=== PATIENT | male | born 1950 | race Caucasian/White ===

== ENCOUNTER → 2018-09-20 | Day surgery (SDC) | payer MEDICARE ==
[2018-09-16 12:39] LABS: BASOPHILS % 0.3 % (0.0-1.0); EOSINOPHILS # (AUTO) 0.2 (0.0-0.4); EOSINOPHILS % 1.6 % (0.0-6.0); HEMATOCRIT 36.3 % (38.2-49.6); HEMOGLOBIN 12.9 g/dL (14.0-18.0); LYMPHOCYTES # (AUTO) 1.4 (1.0-3.2); LYMPHOCYTES % 14.8 % (18.0-39.1); MEAN CORPUSCULAR HEMOGLOBIN 31.3 pg (28-32); MEAN CORPUSCULAR HGB CONC 35.5 g/dL (31-35); MEAN CORPUSCULAR VOLUME 88.1 fL (81-99); MONOCYTES # (AUTO) 0.8 (0.2-0.8); MONOCYTES % 8.3 % (4.4-11.3); NEUTROPHILS # (AUTO) 7.2 (2.1-6.9); NEUTROPHILS % 74.3 % (38.7-80.0); PLATELET COUNT 244 x10e3/uL (140-360); RED BLOOD COUNT 4.12 x10e6/uL (4.3-5.7); RED CELL DISTRIBUTION WIDTH 12.4 % (11.7-14.4)
[~2018-09-20] MED LIST: ASPIR 8181 MG PO; FENTANYL CITRATE/PF 100MCG/2 ML INJ ONE; HYOSCYAMINE SULFATE 0.5 MG/ML INJ ONE; LIPITOR20 MG PO; METFORMIN HCL500 MG PO; METOPROLOL SUCC25 MG PO; MIDAZOLAM HCL 2 MG/2 ML VIAL ONE; PROPOFOL IV EMULSION 10 MG/ML 50 ML VIAL ONE
--- OUTSIDE RECORDS SUMMARY | 2018-09-20 08:45 | XMS REPORT | Clinical Summary ---
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 10/13/2018 Active blood-glucose meter Use as 1 each 0 (ONETOUCH ULTRA2) kit instructed 8 Active blood sugar diagnostic Four times 150 strip 0 strips (ONETOUCH ULTRA daily 8 TEST) strip test strips 10/13/2017 Discontinued atorvastatin (LIPITOR) 20 0 MG tablet 8 10/13/2017 Discontinued clopidogrel (PLAVIX) 75 0 mg tablet 8 10/13/2017 Discontinued clonAZEPAM (KlonoPIN) 0.5 0 MG tablet 8 10/13/2017 Discontinued citalopram (CeleXA) 20 MG 0 tablet 8 10/13/2017 Discontinued azithromycin (ZITHROMAX) 0 250 MG tablet 8 10/13/2017 Discontinued metoprolol tartrate 0 (LOPRESSOR) 25 mg tablet 8 10/13/2017 Discontinued metFORMIN (GLUCOPHAGE) 0 1,000 mg tablet 8 10/13/2017 Discontinued lisinopril 0 (PRINIVIL,ZESTRIL) 20 mg 8 tablet 10/13/2017 Discontinued hydrocodone-chlorpheniram TAKE 5ML BY 0 ine (TUSSIONEX MOUTH TWICE 7 PENNKINETIC) 10-8 mg/5 mL DAILY ER suspension NEEDED 10/13/2017 Discontinued pantoprazole (PROTONIX) 0 40 MG EC tablet 8 10/13/2017 Discontinued nitroglycerin (NITROSTAT) Place 0.4 mg 0 0.4 MG SL tablet under the tongue every 5 (five) minutes as needed for chest pain. 10/13/2017 Discontinued polyethylene glycol Take 17 g by 0 (MIRALAX) 17 gram packet mouth nightly. 10/13/2017 Discontinued insulin GLARGINE (LANTUS) Inject 30 9 mL 0 100 unit/mL injection Units under 8 (vial) the skin daily before breakfast for 30 days. 11/12/2017 furosemide (LASIX) 20 mg Take 1 tablet 60 tablet 0 tablet (20 mg total) 8 by mouth 2 (two) times a day for 30 days. 11/13/2017 prasugrel (EFFIENT) 10 mg Take 1 tablet 30 tablet 0 tablet (10 mg total) 8 by mouth daily for 30 days. 11/12/2017 atorvastatin (LIPITOR) 80 Take 1 tablet 30 tablet 0 MG tablet (80 mg total) 8 by mouth nightly for 30 days. 11/12/2017 metoprolol tartrate Take 1 tablet 60 tablet 0 (LOPRESSOR) 25 mg tablet (25 mg total) 8 by mouth 2 (two) times a day for 30 days. 11/12/2017 metFORMIN (GLUCOPHAGE) Take 1 tablet 60 tablet 0 1,000 mg tablet (1,000 mg 8 total) by mouth 2 (two) times a day with meals for 30 days. 11/12/2017 ferrous sulfate 325 (65 Take 1 tablet 60 tablet 0 FE) MG tablet (325 mg 8 total) by mouth 2 (two) times a day with meals for 30 days. 11/03/2017 HYDROcodone-acetaminophen Take 1 tablet 30 tablet 0 (NORCO) 10-325 mg per by mouth 8 tablet every 4 (four) hours as needed for moderate pain for up to 30 doses. Max Daily Amount: 30 tablets 11/12/2017 potassium chloride Take 2 120 capsule 0 (MICRO-K) 10 MEQ CR capsules (20 8 capsule mEq total) by mouth 2 (two) times a day for 30 days. 11/13/2017 pantoprazole (PROTONIX) Take 1 tablet 30 tablet 0 40 MG EC tablet (40 mg total) 8 by mouth daily for 30 days. 11/13/2017 citalopram (CeleXA) 20 MG Take 1 tablet 30 tablet 0 tablet (20 mg total) 8 by mouth daily for 30 days. 10/13/2017 Discontinued insulin NPH (HumuLIN N Inject 15 10 mL 3 NPH U-100 Insulin) 100 Units under 8 unit/mL injection the skin 2 (two) times a day before meals for 30 days. 10/26/2017 Discontinued lancets (ONETOUCH DELICA Test four 200 each 0 LANCETS) 33 gauge misc times daily 8 10/26/2017 Discontinued insulin syringe-needle Use as 100 each 0 U-100 (INSULIN SYRINGE) directed 8 1/2 mL 28 gauge x 1/2" syringe Active Problems Problem Noted Date NSTEMI (non-ST elevated myocardial infarction) 10/05/2017 Chest pain 10/04/2017 Postsurgical aortocoronary bypass status Encounters Care Team Description Date Type Specialty Zen Herrera Jr., MD 12/09/2017 Hospital Cardiac Rehabilitation Encounter Zen Herrera Jr., MD 12/08/2017 Hospital Cardiac Rehabilitation Encounter Zen Herrera Jr., MD 12/06/2017 Hospital Cardiac Rehabilitation Encounter Zen Herrera Jr., MD 12/02/2017 Hospital Cardiac Rehabilitation Encounter Zen Herrera Jr., MD 12/01/2017 Hospital Cardiac Rehabilitation Encounter Zen Herrera Jr., MD 11/29/2017 Hospital Cardiac Rehabilitation Encounter Zen Herrera Jr., MD 11/25/2017 Hospital Cardiac Rehabilitation Encounter Zen Herrera Jr., MD 11/24/2017 Hospital Cardiac Rehabilitation Encounter Zen Herrera Jr., MD 11/22/2017 Hospital Cardiac Rehabilitation Encounter Zen Herrera Jr., MD 11/18/2017 Hospital Cardiac Rehabilitation Encounter Zen Herrera Jr., MD 11/17/2017 Hospital Cardiac Rehabilitation Encounter Zen Herrera Jr., MD 11/10/2017 Hospital Cardiac Rehabilitation Encounter Zen Herrera Jr., MD Luczak, Amy Kathryn, PA-C Postsurgical aortocoronary bypass status (Primary Dx) 10/26/2017 Office Visit Cardiovascular [facility] Postsurgical aortocoronary bypass status (Primary Dx) 10/18/2017 Transcribe Cardiac Rehabilitation Orders Zen Herrera Jr., MD CABG x2 off pump, using autologous vein graft & KLEIN 10/08/2017 Surgery General Surgery Misael Dinh MD 10/08/2017 Anesthesia Surgical Intensive Care Event Chaim Tucker MD Cv left heart cath w lv gram cors [53860 (CPT)] 10/05/2017 Surgery Procedural Cardiology Shyann Milian DO Berberian, Esteban N., MD Chest pain, unspecified type (Primary Dx); Shortness of breath; NSTEMI (non-ST elevated myocardial infarction); Unstable angina pectoris 10/04/2017 Hospital Critical Care Medicine - Encounter 10/13/2017 after 09/19/2017 Family History Medical History Relation Name Comments Heart disease Mother MA Relation Name Status Comments Mother Social History Date Tobacco Use Types Packs/Day Years Used Never Smoker Smokeless Tobacco: Never Used Alcohol Use Drinks/Week oz/Week Comments No Sex Assigned at Date Recorded Not on file Industry Job Start Date Occupation Not on file Not on file Not on file Travel End Travel History Travel Start No recent travel history available. Last Filed Vital Signs Time Taken Vital Sign Reading 10/26/2017 4:33 PM CDT Blood Pressure 114/64 10/26/2017 4:33 PM CDT Pulse 72 10/13/2017 8:00 AM ENGINEER Temperature 36.6 C (97.8 F) 10/26/2017 4:33 PM CDT Respiratory Rate 12 10/26/2017 4:33 PM CDT Oxygen Saturation 98% - Inhaled Oxygen - Concentration 10/26/2017 4:33 PM CDT Weight 84.3 kg (185 lb 12.8 oz) 10/26/2017 4:33 PM CDT Height 167.6 cm (5' 6") 10/26/2017 4:33 PM CDT Body Mass Index 29.99 Plan of Treatment Health Maintenance Due Date Last Done Comments COLON CANCER SCREENING 2000 SHINGLES VACCINES (1 of 2000 2) PNEUMOCOCCAL 2015 POLYSACCHARIDE VACCINE AGE 65 AND OVER PNEUMOCOCCAL-13 2015 INFLUENZA VACCINE 03/09/2018 Implants Device Identifier Shelf Expiration Date Model / Serial / Lot Implanted Type Area Manufactur er 06/08/2019 [id number] / / [id number] Device Vasclr Clsr Baln Cath 10ml Cardiovasc N/A: N/A ACCESS Lkng Syr 5fr Landry Mynxgrip - ular CLOSURE [id number] Implants INC Implanted: 10/05/2017 (Quantity not on file) 10/16/2017 HSK [id number] / / [id number] System Prox Seal Aortc Cutter Cardiovasc N/A: Chest [employer] 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 4.3mm Heartstring Iii - ular [id number] Implants Implanted: Qty: 1 on 10/08/2017 [place] [id number] / / Clip Ligating Wide Titanium Small - Surgical N/A: Chest SYMMETRY [id number] Implants; SURGICAL Implanted: Qty: 1 on 10/08/2017 by Expanders; Zen Herrera Jr., MD Extenders; Surgical Wires [id number] / / Clip Ligating Wide Titanium Small - Surgical Left: Leg SYMMETRY [id number] Implants; SURGICAL Implanted: Qty: 1 on 10/08/2017 by Expanders; Zen Herrera Jr., MD Extenders; Surgical Wires [id number] / / Clip Ligating Titanium Medium - Surgical N/A: Chest VESOCCLUDE [id number] Implants; MEDICAL Implanted: Qty: 1 on 10/08/2017 by Expanders; Zen Herrera Jr., MD Extenders; Surgical Wires [id number] / / Clip Ligating Titanium Medium - Surgical Left: Leg VESOCCLUDE [id number] Implants; MEDICAL Implanted: Qty: 1 on 10/08/2017 by Expanders; Zen Herrera Jr., MD Extenders; Surgical Wires Device Identifier Shelf Expiration Date Model / Serial / Lot Explanted Type Area Manufactur er [place] 1999L / / Shunt Cor Axius Hrt Beating Surgical N/A: Chest [employer] Accessories Long [id number] - Implantabl [id number] e Shunts Implanted: or Shunt Explanted: 10/08/2017 by Evelyn Herrera Jr., MD (Quantity not on file) OF 1500L / / Shunt Cor Axius Beating Hrt Long Surgical N/A: Chest [employer] 1.5x20.25mm - [id number] Implantabl Implanted: e Shunts Explanted: 10/08/2017 by Sharon, or Shunt Zen Ruiz Jr., MD (Quantity not on Extenders file) 01/15/2018 OF 2500 / / [id number] Shunt Cor Axius 2.5x19mm - Surgical N/A: Chest [employer] [id number] Implantabl Implanted: e Shunts Explanted: 10/08/2017 (Quantity not or Shunt on file) Extenders Procedures Comments Procedure Name Priority Date/Time Associated Diagnosis POC GLUCOSE Routine 10/13/2017 11:26 AM ENGINEER IONIZED CALCIUM Routine 10/13/2017 8:46 AM ENGINEER POC GLUCOSE Routine 10/13/2017 7:10 AM ENGINEER ZZESTIMATED GFR Routine 10/13/2017 5:37 AM ENGINEER BASIC METABOLIC PANEL Routine 10/13/2017 5:37 AM ENGINEER MAGNESIUM LEVEL Routine 10/13/2017 5:37 AM ENGINEER PHOSPHORUS LEVEL Routine 10/13/2017 5:37 AM ENGINEER HC COMPLETE BLD COUNT Routine 10/13/2017 W/AUTO DIFF 5:37 AM ENGINEER POC GLUCOSE Routine 10/12/2017 8:21 PM ENGINEER POC GLUCOSE Routine 10/12/2017 4:13 PM ENGINEER POC GLUCOSE Routine 10/12/2017 11:34 AM ENGINEER POC GLUCOSE Routine 10/12/2017 7:04 AM ENGINEER XR CHEST 1 VW PORTABLE Routine 10/12/2017 5:16 AM ENGINEER MAGNESIUM LEVEL Routine 10/12/2017 4:42 AM ENGINEER PHOSPHORUS LEVEL Routine 10/12/2017 4:42 AM ENGINEER HC COMPLETE BLD COUNT Routine 10/12/2017 W/AUTO DIFF 4:42 AM ENGINEER POC GLUCOSE Routine 10/11/2017 8:29 PM ENGINEER POC GLUCOSE Routine 10/11/2017 4:06 PM ENGINEER POC GLUCOSE Routine 10/11/2017 11:07 AM ENGINEER POC GLUCOSE Routine 10/11/2017 7:07 AM ENGINEER ECG 12-LEAD Routine 10/11/2017 5:27 AM ENGINEER ZZESTIMATED GFR Routine 10/11/2017 5:15 AM ENGINEER PHOSPHORUS LEVEL Routine 10/11/2017 5:15 AM ENGINEER HC COMPLETE BLD COUNT Routine 10/11/2017 W/AUTO DIFF 5:15 AM ENGINEER IONIZED CALCIUM Routine 10/11/2017 5:15 AM ENGINEER MAGNESIUM LEVEL Routine 10/11/2017 5:15 AM ENGINEER BASIC METABOLIC PANEL Routine 10/11/2017 5:15 AM ENGINEER XR CHEST 1 VW PORTABLE Routine 10/11/2017 5:11 AM ENGINEER POC GLUCOSE Routine 10/10/2017 3:40 PM ENGINEER POC GLUCOSE Routine 10/10/2017 11:21 AM ENGINEER POC GLUCOSE Routine 10/10/2017 7:21 AM ENGINEER XR CHEST 1 VW PORTABLE Routine 10/10/2017 7:01 AM ENGINEER ECG 12-LEAD Routine 10/10/2017 5:10 AM ENGINEER ZZESTIMATED GFR Routine 10/10/2017 3:44 AM ENGINEER IONIZED CALCIUM Routine 10/10/2017 3:44 AM ENGINEER MAGNESIUM LEVEL Routine 10/10/2017 3:44 AM ENGINEER BASIC METABOLIC PANEL Routine 10/10/2017 3:44 AM ENGINEER CBC HEMOGRAM Routine 10/10/2017 3:44 AM ENGINEER POC GLUCOSE Routine 10/09/2017 9:37 PM ENGINEER ZZESTIMATED GFR Routine 10/09/2017 7:30 PM ENGINEER IONIZED CALCIUM Routine 10/09/2017 7:30 PM ENGINEER MAGNESIUM LEVEL Routine 10/09/2017 7:30 PM ENGINEER BASIC METABOLIC PANEL Routine 10/09/2017 7:30 PM ENGINEER POC GLUCOSE Routine 10/09/2017 4:32 PM ENGINEER POC GLUCOSE Routine 10/09/2017 10:49 AM ENGINEER POC GLUCOSE Routine 10/09/2017 9:07 AM ENGINEER XR CHEST 1 VW PORTABLE Routine 10/09/2017 7:32 AM ENGINEER POC GLUCOSE Routine 10/09/2017 7:09 AM ENGINEER POC GLUCOSE Routine 10/09/2017 6:06 AM ENGINEER ARTERIAL BLOOD GAS Routine 10/09/2017 4:37 AM ENGINEER ECG 12-LEAD Routine 10/09/2017 4:20 AM ENGINEER ZZESTIMATED GFR Routine 10/09/2017 4:20 AM ENGINEER IONIZED CALCIUM Routine 10/09/2017 4:20 AM ENGINEER MAGNESIUM LEVEL Routine 10/09/2017 4:20 AM ENGINEER BASIC METABOLIC PANEL Routine 10/09/2017 4:20 AM ENGINEER CBC HEMOGRAM Routine 10/09/2017 4:20 AM ENGINEER POC GLUCOSE Routine 10/09/2017 4:19 AM ENGINEER POC GLUCOSE Routine 10/09/2017 2:03 AM ENGINEER POC GLUCOSE Routine 10/09/2017 12:02 AM ENGINEER POC GLUCOSE Routine 10/08/2017 11:07 PM ENGINEER POC GLUCOSE Routine 10/08/2017 9:01 PM ENGINEER POC GLUCOSE Routine 10/08/2017 7:06 PM ENGINEER POC GLUCOSE Routine 10/08/2017 6:04 PM ENGINEER MAGNESIUM LEVEL Timed 10/08/2017 5:20 PM ENGINEER POC GLUCOSE Routine 10/08/2017 5:08 PM ENGINEER POC GLUCOSE Routine 10/08/2017 3:59 PM ENGINEER POC GLUCOSE Routine 10/08/2017 3:00 PM ENGINEER POC GLUCOSE Routine 10/08/2017 2:01 PM ENGINEER POC GLUCOSE Routine 10/08/2017 12:56 PM ENGINEER POC GLUCOSE Routine 10/08/2017 11:55 AM ENGINEER POC GLUCOSE Routine 10/08/2017 11:05 AM ENGINEER ARTERIAL BLOOD GAS STAT 10/08/2017 11:05 AM ENGINEER ECG 12-LEAD STAT 10/08/2017 10:49 AM ENGINEER ZZESTIMATED GFR STAT 10/08/2017 10:45 AM ENGINEER PROTHROMBIN TIME WITH INR STAT 10/08/2017 10:45 AM ENGINEER PARTIAL THROMBOPLASTIN STAT 10/08/2017 TIME (PTT) 10:45 AM ENGINEER MAGNESIUM LEVEL STAT 10/08/2017 10:45 AM ENGINEER IONIZED CALCIUM STAT 10/08/2017 10:45 AM ENGINEER CBC HEMOGRAM STAT 10/08/2017 10:45 AM ENGINEER BASIC METABOLIC PANEL STAT 10/08/2017 10:45 AM ENGINEER XR CHEST 1 VW PORTABLE STAT 10/08/2017 10:42 AM ENGINEER POC GLUCOSE Routine 10/08/2017 10:41 AM ENGINEER POC CG8, ARTERIAL Routine 10/08/2017 9:58 AM ENGINEER POC CG8, ARTERIAL Routine 10/08/2017 9:37 AM ENGINEER POC CG8, ARTERIAL Routine 10/08/2017 8:48 AM ENGINEER URINALYSIS, AUTOMATED Timed 10/08/2017 NSTEMI (non-ST elevated WITH MICROSCOPY 7:45 AM ENGINEER myocardial infarction) POC CG8, ARTERIAL Routine 10/08/2017 7:31 AM ENGINEER POC GLUCOSE Routine 10/08/2017 5:48 AM ENGINEER ZZESTIMATED GFR Routine 10/08/2017 4:42 AM ENGINEER TROPONIN Routine 10/08/2017 4:42 AM ENGINEER HC COMPLETE BLD COUNT Routine 10/08/2017 W/AUTO DIFF 4:42 AM ENGINEER BASIC METABOLIC PANEL Routine 10/08/2017 4:42 AM ENGINEER POC GLUCOSE Routine 10/08/2017 4:09 AM ENGINEER POC GLUCOSE Routine 10/08/2017 2:25 AM ENGINEER POC GLUCOSE Routine 10/08/2017 12:24 AM ENGINEER POC GLUCOSE Routine 10/07/2017 10:56 PM ENGINEER PARTIAL THROMBOPLASTIN Timed 10/07/2017 TIME (PTT) 10:56 PM ENGINEER POC GLUCOSE Routine 10/07/2017 8:26 PM ENGINEER POC GLUCOSE Routine 10/07/2017 6:38 PM ENGINEER POC GLUCOSE Routine 10/07/2017 4:40 PM ENGINEER PARTIAL THROMBOPLASTIN Timed 10/07/2017 TIME (PTT) 3:50 PM ENGINEER POC GLUCOSE Routine 10/07/2017 11:45 AM ENGINEER PARTIAL THROMBOPLASTIN Timed 10/07/2017 TIME (PTT) 8:20 AM ENGINEER POC GLUCOSE Routine 10/07/2017 6:40 AM ENGINEER ZZESTIMATED GFR Routine 10/07/2017 6:00 AM ENGINEER PLATELET MAPPING Routine 10/07/2017 6:00 AM ENGINEER PLATELET FUNCTION P2Y12 Routine 10/07/2017 6:00 AM ENGINEER TROPONIN Routine 10/07/2017 6:00 AM ENGINEER HC COMPLETE BLD COUNT Routine 10/07/2017 W/AUTO DIFF 6:00 AM ENGINEER BASIC METABOLIC PANEL Routine 10/07/2017 6:00 AM ENGINEER PARTIAL THROMBOPLASTIN Timed 10/06/2017 TIME (PTT) 10:58 PM ENGINEER POC GLUCOSE Routine 10/06/2017 8:43 PM ENGINEER PARTIAL THROMBOPLASTIN Timed 10/06/2017 TIME (PTT) 3:33 PM ENGINEER POC GLUCOSE Routine 10/06/2017 10:54 AM ENGINEER SPIROMETRY Routine 10/06/2017 Shortness of breath 9:24 AM ENGINEER PARTIAL THROMBOPLASTIN Timed 10/06/2017 TIME (PTT) 8:39 AM ENGINEER POC GLUCOSE Routine 10/06/2017 6:21 AM ENGINEER ZZESTIMATED GFR Routine 10/06/2017 4:54 AM ENGINEER TROPONIN Routine 10/06/2017 4:54 AM ENGINEER HC COMPLETE BLD COUNT Routine 10/06/2017 W/AUTO DIFF 4:54 AM ENGINEER BASIC METABOLIC PANEL Routine 10/06/2017 4:54 AM ENGINEER PARTIAL THROMBOPLASTIN Timed 10/05/2017 TIME (PTT) 11:43 PM ENGINEER POC GLUCOSE Routine 10/05/2017 8:25 PM ENGINEER US CAROTID DUPLEX STAT 10/05/2017 BILATERAL 7:11 PM ENGINEER POC GLUCOSE Routine 10/05/2017 4:10 PM ENGINEER ECHOCARDIOGRAM 2D Routine 10/05/2017 COMPLETE W MMODE SPECTRAL 3:16 PM ENGINEER COLOR DOPPLER (59952) PREPARE RBC Timed 10/05/2017 3:02 PM ENGINEER ANTI XA, UNFRACTIONATED STAT 10/05/2017 3:02 PM ENGINEER PARTIAL THROMBOPLASTIN STAT 10/05/2017 TIME (PTT) 3:02 PM ENGINEER PROTHROMBIN TIME WITH INR STAT 10/05/2017 3:02 PM ENGINEER HC COMPLETE BLD COUNT STAT 10/05/2017 W/AUTO DIFF 3:02 PM ENGINEER THYROID STIMULATING STAT 10/05/2017 HORMONE 3:02 PM ENGINEER HEMOGLOBIN A1C STAT 10/05/2017 3:02 PM ENGINEER PLATELET FUNCTION P2Y12 STAT 10/05/2017 3:02 PM ENGINEER PLATELET MAPPING STAT 10/05/2017 3:02 PM ENGINEER TYPE AND SCREEN Timed 10/05/2017 3:02 PM ENGINEER POC GLUCOSE Routine 10/05/2017 10:59 AM ENGINEER CV LEFT HEART CATH LV Routine 10/05/2017 GRAM WITH CORS 8:28 AM ENGINEER POC GLUCOSE Routine 10/05/2017 6:27 AM ENGINEER TROPONIN Timed 10/05/2017 4:47 AM ENGINEER ECG 12-LEAD STAT 10/05/2017 4:30 AM ENGINEER TROPONIN Timed 10/05/2017 12:57 AM ENGINEER POC GLUCOSE Routine 10/04/2017 10:18 PM ENGINEER TROPONIN Timed 10/04/2017 9:05 PM ENGINEER ECG ED PRELIMINARY Routine 10/04/2017 INTERPRETATION 4:58 PM ENGINEER XR CHEST 1 VW PORTABLE STAT 10/04/2017 4:55 PM ENGINEER ZZESTIMATED GFR STAT 10/04/2017 4:43 PM ENGINEER B NATRIURETIC PEPTIDE STAT 10/04/2017 4:43 PM ENGINEER TROPONIN STAT 10/04/2017 4:43 PM ENGINEER COMPREHENSIVE METABOLIC STAT 10/04/2017 PANEL 4:43 PM ENGINEER HC COMPLETE BLD COUNT STAT 10/04/2017 W/AUTO DIFF 4:43 PM ENGINEER ECG 12-LEAD STAT 10/04/2017 4:37 PM ENGINEER after 09/19/2017 Results * POC glucose (10/13/2017 11:26 AM ENGINEER) Only the most recent of 52 results within the time period is included. POC glucose 160 (H) 65 - 100 mg/dL [facility] Comment: PATHOLOGY AND Meter ID: [id number] GENOMIC MEDICINE Supervisor Rides: Radha Karimi Performing Organization Address City/State/Zipcode Phone Number [facility] [place] [address] PATHOLOGY AND GENOMIC MEDICINE * Ionized calcium (10/13/2017 8:46 AM ENGINEER) Only the most recent of 6 results within the time period is included. pH 7.39 [facility]OLOGY AND GENOMIC MEDICINE Ionized calcium 1.29 1.11 - 1.32 mmol/L [facility] OF PATHOLOGY AND GENOMIC MEDICINE Specimen Plasma specimen Performing Organization Address City/[facility] Services[facility] [place] [address] PATHOLOGY AND [employer] [facility] * Estimated GFR (10/13/2017 5:37 AM ENGINEER) Only the most recent of 10 results within the time period is included. GFR Non Af Amer >90 mL/min/1.73 m2 [facility]OLOGY AND GENOMIC MEDICINE GFR Af Amer >90 mL/min/1.73 m2 [facility] Comment: PATHOLOGY AND Chronic kidney disease: <60 GENOMIC MEDICINE mL/min/1.73m2 Kidney failure: <15 mL/min/1.73m2 The estimated GFR is calculated from the IDMS-traceable Modification of Diet in Renal Disease Equation. The accuracy of the calculation is poor when the creatinine is normal. Calculated values >90 mL/min/1.73m2 are not reported. This equation has not been validated in children (<18 years), women, the elderly (>70 years), or ethnic groups other than Caucasians and Americans. Specimen Plasma specimen Performing Organization Address City/[facility] Services[place] [address] PATHOLOGY AND [employer] [facility] * CBC with platelet and differential (10/13/2017 5:37 AM ENGINEER) Only the most recent of 8 results within the time period is included. WBC 6.3 4.2 - 11.0 k/uL [facility] PATHOLOGY AND GENOMIC MEDICINE RBC 2.98 (L) 4.04 - 5.86 m/uL [facility] PATHOLOGY AND GENOMIC MEDICINE HGB 9.4 (L) 13.0 - 17.3 g/dL [facility] PATHOLOGY AND GENOMIC MEDICINE HCT 27.5 (L) 34.0 - 45.0 % [facility]OLOGY AND GENOMIC MEDICINE MCV 92.3 80.0 - 98.0 fL [facility]OLOGY AND GENOMIC MEDICINE MCH 31.5 27.0 - 34.0 pg [facility] PATHOLOGY AND GENOMIC MEDICINE MCHC 34.2 31.5 - 36.5 g/dL [facility] PATHOLOGY AND GENOMIC MEDICINE RDW - SD 42.8 37.0 - 51.0 fL [facility] PATHOLOGY AND GENOMIC MEDICINE MPV 10.4 7.4 - 10.4 fL [facility]OLOGY AND GENOMIC MEDICINE Platelet count 255 150 - 400 k/uL [facility] PATHOLOGY AND GENOMIC MEDICINE Nucleated RBC 0.00 /100 WBC [facility] PATHOLOGY AND GENOMIC MEDICINE Neutrophils 69.7 (H) 36.0 - 66.0 % [facility] PATHOLOGY AND GENOMIC MEDICINE Lymphocytes 13.4 (L) 24.0 - 44.0 % [facility] PATHOLOGY AND GENOMIC MEDICINE Monocytes 12.3 (H) 0.0 - 6.0 % [facility] PATHOLOGY AND GENOMIC MEDICINE Eosinophils 2.7 0.0 - 6.0 % [facility] PATHOLOGY AND GENOMIC MEDICINE Basophils 0.5 0.0 - 1.2 % [facility] PATHOLOGY AND GENOMIC MEDICINE Immature granulocytes 1.4 (H) 0.0 - 1.0 % [facility] OF PATHOLOGY AND GENOMIC MEDICINE Specimen Blood Performing Organization Address City/[facility] Services[place] [address] PATHOLOGY AND [facility] * Phosphorus level (10/13/2017 5:37 AM ENGINEER) Only the most recent of 3 results within the time period is included. Phosphorus 2.4 (L) 2.5 - 4.5 mg/dL [facility] PATHOLOGY AND GENOMIC MEDICINE Specimen Plasma specimen Performing Organization Address City/[facility] Services[facility] [place] [address] PATHOLOGY AND [facility] * Magnesium level (10/13/2017 5:37 AM ENGINEER) Only the most recent of 8 results within the time period is included. Magnesium 1.90 1.60 - 2.40 mg/dL [facility] PATHOLOGY AND GENOMIC MEDICINE Specimen Plasma specimen Performing Organization Address City/[facility] Services[place] [address] PATHOLOGY AND [facility] * Basic metabolic panel (10/13/2017 5:37 AM ENGINEER) Only the most recent of 9 results within the time period is included. Sodium 137 135 - 150 mEq/L [facility]OLOGY AND GENOMIC MEDICINE Potassium 4.4 3.5 - 5.0 mEq/L [facility] PATHOLOGY AND GENOMIC MEDICINE Chloride 103 100 - 109 mEq/L [facility] PATHOLOGY AND GENOMIC MEDICINE CO2 25 24 - 32 mmol/L [facility] PATHOLOGY AND GENOMIC MEDICINE Anion gap 9 7 - 15 mEq/L [facility] Comment: PATHOLOGY AND Starting from November [facility] MEDICINE , anion gap calculation no longer incorporates potassium. Please note the change. BUN 16 7 - 18 mg/dL [facility] PATHOLOGY AND GENOMIC MEDICINE Creatinine 0.7 (L) 0.8 - 1.5 mg/dL [facility] PATHOLOGY AND GENOMIC MEDICINE Glucose 111 (H) 65 - 100 mg/dL [facility] PATHOLOGY AND GENOMIC MEDICINE Calcium 9.0 8.6 - 10.7 mg/dL [facility] PATHOLOGY AND GENOMIC MEDICINE Specimen Plasma specimen Performing Organization Address City/State/[facility] Servicescode Phone Number [place] [phone] [place] [address] PATHOLOGY AND GENOMIC MEDICINE * XR Chest 1 Vw Portable (10/12/2017 5:16 AM ENGINEER) Only the most recent of 6 results within the time period is included. Narrative Performed At EXAMINATION:XR CHEST 1 VW PORTABLE RADIANT CLINICAL HISTORY:Post-op surgery COMPARISON:October 11, 2017 IMPRESSION: Support tubes remain in satisfactory position.There is continued cardiomegaly with mediastinal widening.There is mild pulmonary vascular congestion some patchy atelectasis at the right lung base.In the mid to lower left lung sharma is more extensive infiltrative process similar to the preceding exam. [facility]-[id number] Procedure Note Interface, Radiology Results Incoming - 10/12/2017 5:53 AM ENGINEER EXAMINATION: XR CHEST 1 VW PORTABLE CLINICAL HISTORY: Post-op surgery COMPARISON: October 11, 2017 IMPRESSION: Support tubes remain in satisfactory position. There is continued cardiomegaly with mediastinal widening. There is mild pulmonary vascular congestion some patchy atelectasis at the right lung base. In the mid to lower left lung sharma is more extensive infiltrative process similar to the preceding exam. [facility]-[id number] Performing Organization Address City/[facility]/Zipcode Phone Number [employer] [address] [place] [address] * ECG 12 lead (10/11/2017 5:27 AM ENGINEER) Only the most recent of 6 results within the time period is included. Ventricular rate 91 [facility] Atrial rate 91 [facility] AZ interval 124 [facility] QRSD interval 98 [facility] QT interval 352 [facility] QTC interval 432 [facility] P axis 1 54 [facility] QRS axis 1 11 [facility] T wave axis 19 [facility] EKG impression Normal sinus rhythm-ST [facility] MUSE elevation, consider lateral injury or acute infarct-^^ ^^ ACUTE MA ^^ ^^-Abnormal ECG-In automated comparison with ECG of 10-OCT-2017 05:10,-No significant change was found- Performing Organization Address City/[facility] Servicescode Phone Number [facility] [address] [place] [address] * CBC hemogram (10/10/2017 3:44 AM ENGINEER) Only the most recent of 3 results within the time period is included. WBC 12.6 (H) 4.2 - 11.0 k/uL [facility] MEDIC[facility] RBC 2.88 (L) 4.04 - 5.86 m/uL [facility]OMIC MEDICINE HGB 9.1 (L) 13.0 - 17.3 g/dL [facility] GENOMIC MEDICINE HCT 26.8 (L) 34.0 - 45.0 % [facility] AND GENOMIC MEDICINE MCV 93.1 80.0 - 98.0 fL [facility]OMIC MEDICINE MCH 31.6 27.0 - 34.0 pg [facility] AND [facility]OMIC MEDICINE MCHC 34.0 31.5 - 36.5 g/dL [facility] AND GENOMIC MEDICINE RDW - SD 44.7 37.0 - 51.0 fL [facility] AND GENOMIC MEDICINE MPV 10.2 7.4 - 10.4 fL [facility]OMIC MEDICINE Platelet count 194 150 - 400 k/uL [facility] AND GENOMIC MEDICINE Nucleated RBC 0.00 /100 WBC [facility] AND GENOMIC MEDICINE Specimen Blood Performing Organization Address City/State/Zipcode Phone Number [address] [place] [address] PATHOLOGY AND GENOMIC MEDICINE * Arterial blood gas (10/09/2017 4:37 AM ENGINEER) Only the most recent of 2 results within the time period is included. Supervisor Rides MASON LACY [facility] AND GENOMIC MEDICINE Collection site [place] [facility] AND GENOMIC MEDICINE O2 therapy NC [facility]Y AND GENOMIC MEDICINE pH, arterial 7.240 (LL) 7.350 - 7.450 units [facility] Comment: PATHOLOGY AND Results called to and read [facility] back by MASON LACY/SICU THERAPIST at 10/09/201704:58 by _IV_. pCO2, arterial 53.4 (H) 35.0 - 45.0 mmHg [facility] AND GENOMIC MEDICINE pO2, arterial 79.3 (L) 80.0 - 90.0 mmHg [facility]Y AND GENOMIC MEDICINE O2 saturation, arterial 94.9 (L) 95.0 - 100.0 % [facility] AND GENOMIC MEDICINE Base excess, arterial -4.5 mEq/L [facility] AND GENOMIC MEDICINE Bicarbonate 22.9 21.0 - 28.0 mEq/L [facility] AND GENOMIC MEDICINE O2 content 15.2 VOL% [facility] AND GENOMIC MEDICINE FiO2, inspired O2% 44.0 % [facility] AND GENOMIC MEDICINE Inspired O2 l/m 6LM L/min [facility] AND GENOMIC MEDICINE Carboxyhemoglobin 1.0 0.0 - 1.4 % [facility] Comment: PATHOLOGY AND Reference Ranges: [facility] Carboxyhemoglobin Non smoker: 0.0 - 2.0% Smoker: 2.1 - 5.0% Heavy smoker: 5.1 - 9% Methemoglobin 0.4 0.0 - 1.0 % [facility] GENOMIC MEDICINE Hemoglobin, blood gas 11.5 (L) 14.0 - 18.0 g/dL [facility] AND GENOMIC MEDICINE pO2, A-a 178.8 mmHg [facility]OLOGY AND GENOMIC MEDICINE Specimen Blood Performing Organization Address City/State/Zipcode Phone Number [facility] [address] [place] [address] PATHOLOGY AND GENOMIC MEDICINE * Partial thromboplastin time, activated (10/08/2017 10:45 AM ENGINEER) Only the most recent of 9 results within the time period is included. PTT 24.4 23.0 - 36.0 sec [facility] Comment: PATHOLOGY AND PTT therapeutic range for GENOMIC MEDICINE unfractionated heparin is 61.0-112.0 seconds which corresponds to Anti-Xa 0.3-0.7 U/ml. Note:Change in Panic Value The PTT Panic Value is changing from 110 sec. to 100 sec. due to new instrumentation and reagents. Correlation studies have been performed to validate this result. REPEAT PTT=23.9 Specimen Blood Performing Organization Address City/[facility] Services[facility] Phone Number [address] [place] [address] PATHOLOGY AND [employer] MEDICINE * Prothrombin time with INR (10/08/2017 10:45 AM ENGINEER) Only the most recent of 2 results within the time period is included. Prothrombin time 15.4 (H) 12.0 - 15.0 sec [facility] PATHOLOGY AND [employer] MEDICINE INR 1.20 (H) 0.92 - 1.12 [facility] Comment: PATHOLOGY AND For patients on anticoagulant GENOMIC MEDICINE therapy, reference ranges below: Indication: INR Value Treatment of Venous Thrombosis, 2.0-3.0 pulmonary emboli, or prophylaxis of a venous thrombosis, or systemic emboli. High dose, high risk patients 3.0-4.5 with mechanical valves. NOTE:INR values over 3.0 are sometimes associated with gastrointestinal hemorrhage, especially values over 4.0. Specimen Blood Performing Organization Address City/[facility] Servicescode Phone Number [facility] [address] [place] [phone] PATHOLOGY AND [employer] MEDICINE * POC CG8, arterial (10/08/2017 9:58 AM ENGINEER) Only the most recent of 4 results within the time period is included. POC sodium 138 135 - 150 mmol/L [facility]Y AND GENOMIC MEDICINE POC potassium 3.7 3.5 - 5.0 mmol/L [facility]OLOGY AND GENOMIC MEDICINE POC hematocrit 24 (L) 38 - 52 % [facility]OLOGY AND GENOMIC MEDICINE Ionized calcium, 1.60 (HH) 1.11 - 1.32 mmol/L [facility] arterial, POC Comment: PATHOLOGY AND POC CRITICAL VALUE (CVOR) GENOMIC MEDICINE POC test performed during an OR procedure.[employer] and/or laborer egg producing farm will follow protocol. pH, arterial, POC 7.34 (L) 7.35 - 7.45 [facility] PATHOLOGY AND GENOMIC MEDICINE pCO2, arterial, POC 43 35 - 45 mm Hg [facility] PATHOLOGY AND GENOMIC MEDICINE pO2, arterial, POC 352 (H) 80 - 90 mm Hg [facility] PATHOLOGY AND GENOMIC MEDICINE O2 saturation, arterial, 100 95 - 100 % [facility] PATHOLOGY AND GENOMIC MEDICINE Base excess, arterial, -3 (L) -2 - 2 meq/L [facility] PATHOLOGY AND GENOMIC MEDICINE Bicarbonate, arterial, 22.9 (L) 23.0 - 27.0 meq/L [facility] PATHOLOGY AND GENOMIC MEDICINE CO2 calculated, arterial, 24 23 - 27 meq/L [facility] PATHOLOGY AND GENOMIC MEDICINE POC glucose 112 (H) 65 - 100 mg/dL [facility] PATHOLOGY AND GENOMIC MEDICINE POC hemoglobin 8.2 (L) 13.0 - 17.3 g/dL [facility] PATHOLOGY AND GENOMIC MEDICINE Specimen Blood Performing Organization Address City/State/Zipcode Phone Number [place] [address] [place] [address] PATHOLOGY AND GENOMIC MEDICINE * Urinalysis, automated with microscopy (10/08/2017 7:45 AM ENGINEER) Color, UA Yellow [facility]Y AND GENOMIC MEDICINE Appearance, UA Clear [facility] PATHOLOGY AND GENOMIC MEDICINE Specific gravity, UA 1.013 1.001 - 1.035 [facility] PATHOLOGY AND GENOMIC MEDICINE pH, UA 6.0 5.0 - 8.5 [facility] PATHOLOGY AND GENOMIC MEDICINE Protein, UA Negative Negative [facility] PATHOLOGY AND GENOMIC MEDICINE Glucose, UA Negative Negative [facility] PATHOLOGY AND GENOMIC MEDICINE Ketones, UA Negative Negative [facility] PATHOLOGY AND GENOMIC MEDICINE Bilirubin, UA Negative Negative [facility] PATHOLOGY AND GENOMIC MEDICINE Blood, UA Trace (A) Negative [facility] PATHOLOGY AND GENOMIC MEDICINE Nitrite, UA Negative Negative [facility] PATHOLOGY AND GENOMIC MEDICINE Urobilinogen, UA Negative <2.0 [facility] PATHOLOGY AND GENOMIC MEDICINE Leukocyte esterase, UA Negative Negative [facility] PATHOLOGY AND GENOMIC MEDICINE WBC, UA 2 0 - 1 /HPF [facility] PATHOLOGY AND GENOMIC MEDICINE RBC, UA 5 (A) 0 - 1 /HPF [facility]OLOGY AND GENOMIC MEDICINE Bacteria, UA None seen None seen [facility] PATHOLOGY AND GENOMIC MEDICINE Yeast, UA None seen [facility] PATHOLOGY AND GENOMIC MEDICINE Yeast with pseudohyphae, None seen [facility] UA PATHOLOGY AND GENOMIC MEDICINE Specimen Urine - Other- Detailed Description Required Performing Organization Address City/State/Zipcode Phone Number [facility] [address] [place] [address] PATHOLOGY AND GENOMIC MEDICINE * Troponin (10/08/2017 4:42 AM ENGINEER) Only the most recent of 7 results within the time period is included. Troponin 0.59 0.00 - 0.60 ng/mL [facility] Comment: PATHOLOGY AND 0.11 - 1.49 GENOMIC MEDICINE ng/mlMay indicate increased risk of acute coronary syndrome. >=1.5 ng/ml Consistent with acute myocardial infarction. The diagnostic value of a single normal or non-diagnostic result is questionable.Serial samples at 2-6 hour intervals are required to rule out acute myocardial injury. Specimen Plasma specimen Performing Organization Address City/[facility] Servicescode Phone Number [address] [place] [address] PATHOLOGY AND GENOMIC MEDICINE * Platelet mapping (10/07/2017 6:00 AM ENGINEER) Only the most recent of 2 results within the time period is included. TEG R time 6.7 min [facility] PATHOLOGY AND GENOMIC MEDICINE TEG K time 1.5 min [facility] PATHOLOGY AND GENOMIC MEDICINE TEG angle 70.1 Deg [facility] PATHOLOGY AND GENOMIC MEDICINE TEG max amplitude 75.4 mm [facility] PATHOLOGY AND GENOMIC MEDICINE TEG fibrinolysis/30 0.0 % [facility] Comment: PATHOLOGY AND Reference Ranges for TEG: GENOMIC MEDICINE Test: UnitsKaoli n:Citrate Kaolin: Rmin 4-9 5-10 Kmin 1-3 1-3 AngleDeg 59-74 53-72 MA mm 55-74 50-70 Gd/sc 5.3-13.2 4.5-11 EPL% 0-150- 15 LY30 % 0-80 - 8 TEG interpretation Footnote [facility] Comment: PATHOLOGY AND There is an increased Maximum GENOMIC MEDICINE Amplitude and clot strength, compatible with hypercoagulability. Glendy Castañeda M.D. 10/08/201716:29 Specimen description, TEG Baseline [facility] AND GENOMIC MEDICINE Sample type, TEG Cit. Kaolin Hep [facility] PATHOLOGY AND GENOMIC MEDICINE TEG SP time 6.2 min [facility]OLOGY AND GENOMIC MEDICINE TEG G 15 Kd/sc [facility] PATHOLOGY AND GENOMIC MEDICINE TEG EPL 0.0 % [facility] Comment: PATHOLOGY AND Reference Ranges for TEG: GENOMIC MEDICINE Test: UnitsKaoli n:Citrate Kaolin: Rmin 3.7-8.3 2.5-7.5 Kmin 0.5-3.7 0.8-2.8 AngleDeg 46.8-73.6 55.2-78.4 MA mm54.5-72. 5 50.6-69.4 Gd/sc [id number] 00 CI Index-3.0 - 3.0-3.0 - 3.0 LY30 % 0.0 - 7.5 0.0 - 7.5 Percent inhibition of ADP 45.4 % [facility] PATHOLOGY AND GENOMIC MEDICINE Percent inhibition of AA 44.7 21.0 - 76.0 % [facility] Comment: PATHOLOGY AND Reference Range: GENOMIC MEDICINE > 76% - - Fully Sensitive 2175%- Partially Sensitive < 20% - Resistance or patient not on ASA (asprin) Net G of ADP 8.2 4.6 - 9.3 Kd/sc [facility] Comment: PATHOLOGY AND <4.6K - GENOMIC MEDICINE Potential for Hemorrhage 4.69.3K- Normal Range >9.3 K- Potential for Thrombosis Platelet mapping Footnote [facility] interpretation Comment: PATHOLOGY AND The Net G of ADP is 8.2 Kd/sc, GENOMIC MEDICINE which is in normal range. Glendy Castañeda M.D. 10/08/201716:31 REVISED REPORT, Previously reported as: Pathologist to review Tegs Footnote (Reported 10/07/2017 07:40) Specimen Plasma specimen Performing Organization Address City/State/Zipcode Phone Number [facility] [place] [address] PATHOLOGY AND GENOMIC MEDICINE * Platelet function P2Y12 (10/07/2017 6:00 AM ENGINEER) Only the most recent of 2 results within the time period is included. Platelet function P2Y12 [address] [facility] DEPARTMENT OF Comment: PATHOLOGY AND Test results are reported in GENOMIC MEDICINE P2Y12 Reaction Units (PRU). Platelet Function P2Y12 indicates the extent of platelet aggregation in the presence of P2Y12 antagonist. Definitive therapeutic reference ranges have not been established for this test. For patients on clopidogrel, clinical studies have shown that a P2Y12 result above 230 to 240 PRU is associated with an increase risk of arterial thrombosis, while a result less than 180 PRU is associated with an increased risk of bleeding. Test results may be adversely affected by therapy with the GPIIb/IIIa inhibitors.Drugs that affect platelet function may be detected up to 14 days after ingestion.The platelet function recovery time varies among individuals and is longer for patients with renal dysfunction.Other test limitations include patients with low hematocrit values or low platelet counts. This test is not intended for evaluation of patients with inherited platelet disorders. Specimen Blood Performing Organization Address City/State/Zipcode Phone Number [facility] DEPARTMENT OF [address] [place] [address] PATHOLOGY AND GENOMIC MEDICINE * Spirometry (10/06/2017 9:24 AM ENGINEER) Narrative Performed At * Us carotid duplex (10/05/2017 7:11 PM ENGINEER) Narrative Performed At Examination: US CAROTID DUPLEX BILATERAL RADIANT CLINICAL HISTORY: pre op TECHNIQUE: Examination includes full duplex Doppler scan (real-time B mode grayscale, Doppler spectral analysis, Doppler color flow imaging) of the common carotid, internal carotid, external carotid, and vertebral arteries. Velocity parameters are based upon studies using distal internal carotid artery diameter as a denominator for stenosis calculation. COMPARISON:None. FINDINGS: Right side: There are no significant atherosclerotic changes involving the right common carotid artery, carotid bulb, or visualized aspects of the right internal and external carotid arteries. There are no flow-limiting stenoses.. There is antegrade flow in the right vertebral artery. Left side: There are no significant atherosclerotic changes involving the left common carotid artery, carotid bulb, and visualized aspects of the left internal and external carotid arteries. Mild plaque formation is seen within a proximal left internal carotid artery. There are no flow-limiting stenoses. . There is antegrade flow in the left vertebral artery. Peak systolic velocities are as follows (cm/s) : Right CCA is 82.2, right ICA is 77.9, ratio 0.9. Left CCA is 90.4, left ICA is 74.0, ratio 0.8. IMPRESSION: 1. There is no evidence of any hemodynamically significant stenosis. 2. There is mild plaque formation seen within the left internal carotid artery. [facility]-[id number] Procedure Note Hm Interface, Radiology Results Incoming - 10/05/2017 7:20 PM ENGINEER Examination: US CAROTID DUPLEX BILATERAL CLINICAL HISTORY: pre op TECHNIQUE: Examination includes full duplex Doppler scan (real-time B mode grayscale, Doppler spectral analysis, Doppler color flow imaging) of the common carotid, internal carotid, external carotid, and vertebral arteries. Velocity parameters are based upon studies using distal internal carotid artery diameter as a denominator for stenosis calculation. COMPARISON:None. FINDINGS: Right side: There are no significant atherosclerotic changes involving the right common carotid artery, carotid bulb, or visualized aspects of the right internal and external carotid arteries. There are no flow-limiting stenoses. . There is antegrade flow in the right vertebral artery. Left side: There are no significant atherosclerotic changes involving the left common carotid artery, carotid bulb, and visualized aspects of the left internal and external carotid arteries. Mild plaque formation is seen within a proximal left internal carotid artery. There are no flow-limiting stenoses. . There is antegrade flow in the left vertebral artery. Peak systolic velocities are as follows (cm/s) : Right CCA is 82.2, right ICA is 77.9, ratio 0.9. Left CCA is 90.4, left ICA is 74.0, ratio 0.8. IMPRESSION: 1. There is no evidence of any hemodynamically significant stenosis. 2. There is mild plaque formation seen within the left internal carotid artery. [facility]-[id number] Performing Organization Address City/State/Zipcode Phone Number [facility] [address] [place] [address] * Echocardiogram complete w contrast and 3D if needed (10/05/2017 3:16 PM ENGINEER) BSA 2.03 m2 [facility] Velocity Ratio (V1/V2) 0.78 m/s [facility] IVS,d 1.27 (A) 0.6 - 1.2 cm [facility] EF 53.98 % [facility] LVPWD,d 1.24 cm [facility] AoV Mean PG 3.25 mmHg [facility] AV LVOT peak gradient 3.28 mmHg [facility] MV mean gradient 1.49 mmHg [facility] MV valve area p 1/2 5.11 cm2 [facility] method PV Pk Grad 3.61 mmHg [facility] E/A ratio 1.03 [facility] E wave decelartion time 148.43 msec [facility] LVOT Diam,S 2.27 cm [facility] LVOT area 4.05 cm2 [facility] LVOT Vmax 0.91 m/s [facility] LVOT VTI 0.18 m [facility] AoV Peak PG 5.51 mmHg [facility] MV Peak E Lucio 0.94 m/s [facility] MV stenosis pressure 1/2 43.04 ms [facility] time MV Peak A Lucio 0.91 m/s [facility] Ao Root Diameter 3.45 cm [facility] AoV Area, Vmax 3.12 cm2 [facility] AoV Area, VTI 3.04 cm2 [facility] AoV Vmax 1.17 m/s [facility] IVS/LVPW,2D 1.02 [facility] Left Atrium Dimension 3.96 cm [facility] Anterior LV,d 4.69 cm [facility] LV,s 3.38 cm [facility] PV VMAX 0.95 m/s [facility] MV E A ratio 1.04 mmHg [facility] MR peak grad 3.39 mmHg [facility] Ao Root Diameter 3.45 cm [facility] LV SYS VOL 46.78 ml [facility] LV MILLER VOL 101.65 ml [facility] LA area s A4C 24.87 cm2 [facility] LA Vol MOD A4C 76.20 ml [facility] LV SV Teich 2D 54.87 ml [facility] LV Vol s Teich PSAX 46.78 ml [facility] LVOT CO 4.69 l/min [facility] LVOT HR for LVOT CO 65.48 bpm [facility] MV Vmax 0.92 m [facility] MV VTI Tips 0.26 m [facility] AoV Vmn 0.88 [facility] IVS s 2D 1.57 [facility] LV FS Cube 2D 27.86 [facility] LV FS Teich 2D 27.86 [facility] AoV VTI 0.24 m [facility] LV EF,2D 62.46 % [facility] MV AE ratio 0.96 [facility] LVOT Vmn 0.61 [facility] Aov area Vmn 2.81 cm2 [facility] LVOT mean grad 1.68 mmHg [facility] MAX Pred HR 152.43 [facility] 85 of MPHR 129.57 [facility] Calc MPHR 152.43 bpm [facility] IVS pct thck PLAX 23.38 % [facility] LV SV Cube 2D 64.27 ml [facility] LV vol d cube 2D 102.90 ml [facility] LV vol s cube 2D 38.63 ml [facility] LVPW pct thck PLAX 14.64 % [facility] LVPW s PLAX 1.42 cm [facility] MV Decel slope 6.36 m/s2 [facility] Pred Exer Dur R1 7.55 [facility] Pred METS R1 7.86 [facility] Narrative Performed At [facility] The left ventricle chamber size is normal. Left Ventricular ejection fraction is 55 - 60%. Left atrium size is mildly dilated. Performing Organization Address City/[facility]/Zipcode Phone Number [facility] [address] [place] [address] * Anti Xa, unfractionated (10/05/2017 3:02 PM ENGINEER) Anti Xa, unfractionated <0.10 (L)Comment: Therapeutic 0.30 - 0.70 U/mL [facility] Range: 0.30 - 0.70 U/mL PATHOLOGY AND GENOMIC MEDICINE Specimen Blood Performing Organization Address City/[facility]/Zipcode Phone Number [facility] [address] [address] PATHOLOGY AND GENOMIC MEDICINE * Prepare RBC, 4 Units (10/05/2017 3:02 PM ENGINEER) Product name Red Blood Cells -1, Leukored [facility]OLOGY AND GENOMIC MEDICINE Unit number [id number] [facility] AND GENOMIC MEDICINE Product code [id number] [facility]OLOG[facility] AND GENOMIC MEDICINE Dispense status Returned to BB not transfused [facility]OLOGY AND GENOMIC MEDICINE Blood expiration date [facility] AND GENOMIC MEDICINE Blood type code 9500 [facility]OLOGY AND GENOMIC MEDICINE Blood type O NEGATIVE [facility] PATHOLOGY AND GENOMIC MEDICINE Product name Red Blood Cells -1, Leukored [facility]OLOGY AND GENOMIC MEDICINE Unit number [id number] [facility]OLOGY AND GENOMIC MEDICINE Product code [id number] [facility]OLOGY AND GENOMIC MEDICINE Dispense status Returned to BB not transfused [facility] PATHOLOGY AND GENOMIC MEDICINE Blood expiration date [facility] PATHOLOGY AND GENOMIC MEDICINE Blood type code 9500 [facility]OLOGY AND GENOMIC MEDICINE Blood type O NEGATIVE [facility] PATHOLOGY AND GENOMIC MEDICINE Product name Red Blood Cells -1, [facility] Unit number [id number] [facility] Product code [id number] [facility] Dispense status Returned to BB not transfused [facility] Blood expiration date [facility] Blood type code 9500 [facility] Blood type O NEGATIVE [facility] Product name Red Blood Cells -1, [facility]uk[facility] Unit number [id number] [facility] Product code [id number] [facility] Dispense status Returned to BB not transfused [facility] Blood expiration date [id number] [facility] Blood type code 9500 [facility] Blood type O NEGATIVE [facility]OMIC MEDICINE Performing Organization Address City/[facility] Services[place] [address] PATHOLOGY AND GENOMIC MEDICINE * Type and screen (10/05/2017 3:02 PM ENGINEER) ABO grouping O [facility] Rh type NEG [facility]IC[facility] Antibody screen (gel) NEG [facility]IC[facility] Specimen Blood Performing Organization Address City/[facility] Services[place] [address] PATHOLOGY AND GENOMIC MEDICINE * Thyroid stimulating hormone (10/05/2017 3:02 PM ENGINEER) TSH 1.80 0.38 - 4.82 uIU/mL [facility]IC[facility] Specimen Plasma specimen Performing Organization Address City/[facility] Services[place] [address] PATHOLOGY AND GENOMIC MEDICINE * Hemoglobin A1c (10/05/2017 3:02 PM ENGINEER) Hemoglobin A1C 8.1 (H) 4.0 - 6.0 % [facility] Comment: PATHOLOGY AND GENOMIC MEDICINE Less than 6% - Goal of therapy for Type II Diabetes Less than 7%-Goal of therapy for Type I Diabetes Less than 8%-Accepta ble control for Type I or Type II Diabetes Greater than 8%-Unacceptabl e control; action indicated. ([id number]) Specimen Blood Performing Organization Address City/[facility]/Zipcode Phone Number [facility] [address] [place] [address] PATHOLOGY AND GENOMIC MEDICINE * Cv syrup machine laborer procedure (10/05/2017 8:28 AM ENGINEER) Narrative Performed At Performing Organization Address City/[facility] Servicescode Phone Number [facility] [phone] [place] [address] * ECG ED Preliminary Interpretation - NOT AN ORDER (10/04/2017 4:58 PM ENGINEER) Narrative Performed At Shyann Milian DO 10/08/2017 10:21 AM ECG ED Preliminary Interpretation - Not an Order Performed by: SHYANN MILIAN Authorized by: SHYANN MILIAN ECG reviewed by ED Physician in the absence of a leaf size picker: yes Interpretation: Interpretation: normal Rate: ECG rate assessment: normal Rhythm: Rhythm: sinus rhythm Ectopy: Ectopy: none QRS: QRS axis:Normal Conduction: Conduction: normal ST segments: ST segments:Normal T waves: T waves: normal * B natriuretic peptide (10/04/2017 4:43 PM ENGINEER) BNP 76 0 - 100 pg/mL [facility]OM[facility] MEDICINE Specimen Blood Performing Organization Address City/[facility]/Zipcode Phone Number [place] [phone] [place] [address] PATHOLOGY AND GENOMIC MEDICINE * Comprehensive metabolic panel (10/04/2017 4:43 PM ENGINEER) Sodium 138 135 - 150 mEq/L [facility]OMIC MEDICINE Potassium 4.3 3.5 - 5.0 mEq/L [facility]OMIC MEDICINE Chloride 104 100 - 109 mEq/L [facility]OMIC MEDICINE CO2 23 (L) 24 - 32 mmol/L [facility]OMIC MEDICINE Anion gap 11 7 - 15 mEq/L [facility] Comment: PATHOLOGY AND Starting from November [facility] MEDICINE , anion gap calculation no longer incorporates potassium. Please note the change. BUN 14 7 - 18 mg/dL [facility]OMIC MEDICINE Creatinine 1.3 0.8 - 1.5 mg/dL [facility] AND [employer] MEDICINE Glucose 122 (H) 65 - 100 mg/dL [facility] GENOMIC MEDICINE Calcium 10.0 8.6 - 10.7 mg/dL [facility] AND [employer] MEDICINE Protein 7.0 6.3 - 8.2 g/dL [facility] AND [employer] MEDICINE Albumin 3.7 3.2 - 5.0 g/dL [facility] AND [employer] MEDICINE A/G ratio 1.1 0.7 - 3.8 [facility] AND [employer] MEDICINE Alkaline phosphatase 71 30 - 120 U/L [facility] AND [facility]OMIC MEDICINE AST 18 15 - 37 U/L [facility] AND [employer] MEDICINE ALT 28 (L) 30 - 65 U/L [facility] AND [employer] MEDICINE Total bilirubin 0.4 0.2 - 1.2 mg/dL [facility] AND [employer] MEDICINE Specimen Plasma specimen Performing Organization Address City/State/Zipcode Phone Number [facility] [place] [address] PATHOLOGY AND GENOMIC MEDICINE after 09/19/2017 Insurance Payer Benefit Subscriber ID Type Phone Address Plan / Group [employer] TEX[employer] xxxxxxxxx O [facility] Advance Directives Patient has advance care planning documents on file. For more information, willem brody contact: Chris Bhakta [phone] [place] [address]
[2018-09-20 13:00] VITALS: BP 146/85
== END | disposition home or self-care (01) ==
LOC: OR 08:40
PROVIDERS: ATTEND Internal Medicine Gastroenterology
DX: Z12.11 Encounter for screening for malignant neoplasm of colon (principal); D12.2 Benign neoplasm of ascending colon; K29.70 Gastritis, unspecified, without bleeding; K29.80 Duodenitis without bleeding; K22.10 Ulcer of esophagus without bleeding; K57.30 Diverticulosis of large intestine without perforation or abscess without bleeding; K44.9 Diaphragmatic hernia without obstruction or gangrene; K59.00 Constipation, unspecified; K64.8 Other hemorrhoids; I25.810 Atherosclerosis of coronary artery bypass graft(s) without angina pectoris; I10 Essential (primary) hypertension; E78.5 Hyperlipidemia, unspecified; M19.90 Unspecified osteoarthritis, unspecified site; E11.9 Type 2 diabetes mellitus without complications; I25.2 Old myocardial infarction; R53.1 Weakness; R39.89 Other symptoms and signs involving the genitourinary system; F32.9 Major depressive disorder, single episode, unspecified; F41.9 Anxiety disorder, unspecified; Z01.810 Encounter for preprocedural cardiovascular examination; Z01.812 Encounter for preprocedural laboratory examination; Z79.82 Long term (current) use of aspirin; Z79.84 Long term (current) use of oral hypoglycemic drugs; Z95.1 Presence of aortocoronary bypass graft; Z86.19 Personal history of other infectious and parasitic diseases; Z80.0 Family history of malignant neoplasm of digestive organs
CPT/HCPCS: 36415 ×2; 43239; 45385; 82948; 85025; 93005; J1980; J2250; J2704; 45384

== ENCOUNTER → 2020-04-09 | Day surgery (SDC) | payer MEDICARE, OTHER ==
[2020-04-05 16:31] LABS: BASOPHILS # (AUTO) 0.1 (0.0-0.1); BASOPHILS % 0.7 % (0.0-1.0); EOSINOPHILS # (AUTO) 0.2 (0.0-0.4); EOSINOPHILS % 2.3 % (0.0-6.0); HEMATOCRIT 31.5 % (38.2-49.6); HEMOGLOBIN 10.5 g/dL (14.0-18.0); LYMPHOCYTES # (AUTO) 1.5 (1.0-3.2); LYMPHOCYTES % 20.7 % (18.0-39.1); MEAN CORPUSCULAR HGB CONC 33.3 g/dL (31-35); MEAN CORPUSCULAR VOLUME 92.9 fL (81-99); MONOCYTES # (AUTO) 0.6 (0.2-0.8); MONOCYTES % 7.4 % (4.4-11.3); NEUTROPHILS # (AUTO) 5.1 (2.1-6.9); NEUTROPHILS % 68.5 % (38.7-80.0); PLATELET COUNT 227 x10e3/uL (140-360); RED BLOOD COUNT 3.39 x10e6/uL (4.3-5.7); RED CELL DISTRIBUTION WIDTH 13.2 % (11.7-14.4)
[~2020-04-09] MED LIST changes: +AMITIZA24 MCG PO; -HYOSCYAMINE SULFATE 0.5 MG/ML INJ ONE; +LIDOCAINE HCL 2% LOCAL INJ 5 ML SDV VIAL INJ ONE; +LISINOPRIL-HCT1 EACH PO; +PRILOSEC OTC20 MG PO; +PROPOFOL IV EMULSION 10 MG/ML 20 ML VIAL ONE; -PROPOFOL IV EMULSION 10 MG/ML 50 ML VIAL ONE; +SENOKOT-S TABL1 EACH PO; +ZOFRAN4 MG PO
[2020-04-09 09:40] VITALS: BP 130/73
== END | disposition home or self-care (01) ==
LOC: ENDO 06:03
PROVIDERS: ATTEND Internal Medicine Gastroenterology
DX: K29.70 Gastritis, unspecified, without bleeding (principal); K21.9 Gastro-esophageal reflux disease without esophagitis; K44.9 Diaphragmatic hernia without obstruction or gangrene; K59.00 Constipation, unspecified; R63.4 Abnormal weight loss; R39.89 Other symptoms and signs involving the genitourinary system; I44.0 Atrioventricular block, first degree; I25.810 Atherosclerosis of coronary artery bypass graft(s) without angina pectoris; I25.2 Old myocardial infarction; I10 Essential (primary) hypertension; E11.9 Type 2 diabetes mellitus without complications; R06.02 Shortness of breath; F41.9 Anxiety disorder, unspecified; F32.9 Major depressive disorder, single episode, unspecified; Z01.810 Encounter for preprocedural cardiovascular examination; Z01.812 Encounter for preprocedural laboratory examination; Z11.59 Encounter for screening for other viral diseases; Z79.82 Long term (current) use of aspirin; Z79.84 Long term (current) use of oral hypoglycemic drugs; Z87.19 Personal history of other diseases of the digestive system; Z95.1 Presence of aortocoronary bypass graft; Z95.5 Presence of coronary angioplasty implant and graft; Z86.19 Personal history of other infectious and parasitic diseases
CPT/HCPCS: 36415 ×2; 43239; 82948; 85025; 93005; J2001; J2250; J2704; J3010; U0002; 43235